=== PATIENT | male | born 1980 | race American Indian/Alaskan Native ===

== ENCOUNTER 2018-12-23 13:01 | Emergency (ER) | payer SELFPAY ==
--- NOTE | 2018-12-23 13:07 | Emergency Department Report ---
Blank Doc - Documentation Documentation: This is a 38-year-old male that presents with left eye pain and blurry vision. This initial assessment/diagnostic orders/clinical plan/treatment(s) is/are subject to change based on patient's health status, clinical progression and re- assessment by fellow clinical providers in the ED. Further treatment and workup at subsequent clinical providers discretion. Patient/guardians urged not to elope from the ED as their condition may be serious if not clinically assessed and managed. Initial orders include: 1- Patient sent to [facility] for further evaluation and treatment 2- conde lamp/visual test
[2018-12-23 13:09] VITALS: BP 126/84
[2018-12-23] MEDS ORDERED: FUL-GLO OP ONE (14:52)
[2018-12-23] MEDS ORDERED: TETRACAINE 0.5% OS ONE (14:52)
[2018-12-23] MEDS ORDERED: BSS OU ONE (14:52)
[2018-12-23] MEDS ORDERED: NORCO 7.5/325 PO ONE (14:52)
[2018-12-23] MEDS ORDERED: IBUPROFEN PO ONE (14:54)
--- NOTE | 2018-12-23 15:23 | Emergency Department Report ---
ED Eye Problem HPI - General Chief complaint: Eye Problems Stated complaint: (L) EYE SWOLLEN/PAIN Time Seen by Provider: 12/23/18 13:06 Source: patient Mode of arrival: Ambulatory Limitations: No Limitations - History of Present Illness Initial comments: This is a 38-year-old male that presents with left eye pain and blurry vision. Patient admits to photophobia pain denies any injury has been going on for one week. Patient is HIV positive. MD chief complaint: eye pain, eye redness, vision change Onset/Timin -: week(s) Onset Description: sudden Location: left eye Eye Symptoms: redness, pain, foreign body sensation, blurry vision, photophobia Severity: severe Severity scale (0 -10): 10 If Pain, Quality: sharp, aching, throbbing, stabbing Consistency: constant Associated Symptoms: none Treatments Prior to Arrival: none, eyepatch - Related Data Patient Tetanus UTD: Yes Previous Rx's Medication Instructions Recorded Last Taken Type Erythromycin [Erythromycin Ophth 1 applic OS QID #1 tube 12/23/18 Unknown Rx Oint] HYDROcodone/APAP 7.5-325 [Leland 1 each PO Q6HR PRN #12 tablet 12/23/18 Unknown Rx 7.5-325 mg TAB] Ibuprofen [Motrin 600 MG tab] 600 mg PO Q8H PRN #30 tablet 12/23/18 Unknown Rx Allergies Allergy/AdvReac Type Severity Reaction Status Date / Time No Known Allergies Allergy Unverified 12/23/18 13:05 ED Review of Systems ROS: Stated complaint: (L) EYE SWOLLEN/PAIN Other details as noted in HPI Comment: All other systems reviewed and negative ED Past Medical Hx - Past Medical History Previous Medical History?: Yes Hx HIV: Yes - Surgical History Past Surgical History?: No - Social History Smoking Status: Current Every Day Smoker Substance Use Type: Alcohol - Medications Home Medications: Home Medications Medication Instructions Recorded Confirmed Last Taken Type Erythromycin [Erythromycin Ophth 1 applic OS QID #1 tube 12/23/18 Unknown Rx Oint] HYDROcodone/APAP 7.5-325 [[place] 1 each PO Q6HR PRN #12 tablet 12/23/18 Unknown Rx 7.5-325 mg TAB] Ibuprofen [Motrin 600 MG tab] 600 mg PO Q8H PRN #30 tablet 07/28/19 Unknown Rx ED Physical Exam - General Limitations: No Limitations General appearance: alert, in no apparent distress - Head Head exam: Present: atraumatic, normocephalic - Eye Eye exam: Present: PERRL, EOMI, conjunctival injection Pupils: Present: other (cornea has linear abrasion from 9:00 o'clock fluroscien uptake. ) - Expanded Eye Exam Expanded Eyelids: Normal Inspection: Left Pupils: Regular, Round: Left Sclera/Conjunctival: Injection: Left Posterior chamber: Deferred: Left - ENT ENT exam: Present: mucous membranes moist - Neurological Exam Neurological exam: Present: alert, oriented X3 - Psychiatric Psychiatric exam: Present: normal affect, normal mood - Skin Skin exam: Present: warm, dry, intact, normal color. Absent: rash ED Course Vital Signs 12/23/18 13:08 Temperature 98 F Pulse Rate 90 Respiratory 18 Rate Blood Pressure 126/84 O2 Sat by Pulse 100 Oximetry ED Medical Decision Making - Medical Decision Making This is a 38-year-old male that presents with left eye pain and blurry vision. Patient admits to photophobia pain denies any injury has been going on for one week. Patient is HIV positive. Patient will be treated with vancomycin ophthalmic ointment apply 4 times a day for the next 5 days. Patient is instructed to follow up with ophthalmology. Patient be given a prescription for Leland and ibuprofen for pain management. Critical care attestation.: If time is entered above; I have spent that time in minutes in the direct care of this critically ill patient, excluding procedure time. ED Disposition Clinical Impression: Corneal laceration of left eye Qualifiers: Encounter type: initial encounter Qualified Code(s): S05.32XA - Ocular laceration without prolapse or loss of intraocular tissue, left eye, initial encounter Disposition: DC-01 TO HOME OR SELFCARE Is pt being admited?: No Does the pt Need Aspirin: No Condition: Stable Instructions: Corneal Abrasion (ED) Additional Instructions: Please use antibiotic ointment as prescribed. Pain medication as needed. It is very very important for you to follow up with ophthalmology within 24 hours to prevent further damage or loss of vision. Prescriptions: Erythromycin [Erythromycin Ophth Oint] 1 applic OS QID #1 tube Ibuprofen [Motrin 600 MG tab] 600 mg PO Q8H PRN #30 tablet PRN Reason: Pain , Severe (7-10) HYDROcodone/APAP 7.5-325 [Leland 7.5-325 mg TAB] 1 each PO Q6HR PRN #12 tablet PRN Reason: Pain , Severe (7-10) Referrals: MAVIS MARTINO MD [Staff Physician] - 3-5 Days [facility] [Provider Group] - 3-5 Days [facility] [Provider Group] - 3-5 Days Forms: Work/School Release Form(ED)
== END 2018-12-23 16:54 | disposition home or self-care (01) ==
LOC: ED 13:01
DX: S05.32XA Ocular laceration without prolapse or loss of intraocular tissue, left eye, initial encounter (principal); F17.200 Nicotine dependence, unspecified, uncomplicated; X58.XXXA Exposure to other specified factors, initial encounter; Y93.89 Activity, other specified; Y92.89 Other specified places as the place of occurrence of the external cause; Y99.8 Other external cause status

== ENCOUNTER 2019-05-23 04:19 | Emergency (ER) | payer SELFPAY ==
--- NOTE | 2019-05-23 08:29 | Emergency Department Report ---
ED General Adult HPI - General Chief complaint: Pain General Stated complaint: GENERALIZED PAIN MOUTH, BODY Time Seen by Provider: 05/23/19 08:26 Source: patient, EMS Mode of arrival: Ambulatory Limitations: No Limitations - History of Present Illness Initial comments: 39yo BM states that he has L ear and neck pain that is an 8 of 10 x 3 days. Pt then further states that he has a history of periodontitis. Location: head Radiation: neck Severity scale (0 -10): 8 Quality: aching Consistency: constant Improves with: none Worsens with: movement Associated Symptoms: malaise Treatments Prior to Arrival: none - Related Data Previous Rx's Medication Instructions Recorded Last Taken Type Erythromycin [Erythromycin Ophth 1 applic OS QID #1 tube 12/23/18 Unknown Rx Oint] HYDROcodone/APAP 7.5-325 [[place] 1 each PO Q6HR PRN #12 tablet 12/23/18 Unknown Rx 7.5-325 mg TAB] Ibuprofen [Motrin 600 MG tab] 600 mg PO Q8H PRN #30 tablet 12/23/18 Unknown Rx Amoxicillin/K Clav Tab [Augmentin 1 tab PO Q12HR 10 Days #20 tab 05/23/19 Unknown Rx 875 mg] Ibuprofen [Motrin 600 MG tab] 600 mg PO Q8H PRN 7 Days #21 tablet 05/23/19 Unknown Rx Allergies Allergy/AdvReac Type Severity Reaction Status Date / Time No Known Allergies Allergy Unverified 12/23/18 13:05 ED Review of Systems ROS: Stated complaint: GENERALIZED PAIN MOUTH, BODY Other details as noted in HPI Comment: All other systems reviewed and negative Constitutional: see HPI ENT: as per HPI ED Past Medical Hx - Past Medical History Previous Medical History?: Yes Hx Pulmonary Embolism: Yes Hx HIV: Yes - Surgical History Past Surgical History?: Yes Additional Surgical History: colorectal - Social History Smoking Status: Current Every Day Smoker Substance Use Type: Marijuana - Medications Home Medications: Home Medications Medication Instructions Recorded Confirmed Last Taken Type Erythromycin [Erythromycin Ophth 1 applic OS QID #1 tube 12/23/18 Unknown Rx Oint] HYDROcodone/APAP 7.5-325 [[place] 1 each PO Q6HR PRN #12 tablet 12/23/18 Unknown Rx 7.5-325 mg TAB] Ibuprofen [Motrin 600 MG tab] 600 mg PO Q8H PRN #30 tablet 12/23/18 Unknown Rx Amoxicillin/K Clav Tab [Augmentin 1 tab PO Q12HR 10 Days #20 tab 05/23/19 Unknown Rx 875 mg] Ibuprofen [Motrin 600 MG tab] 600 mg PO Q8H PRN 7 Days #21 tablet 05/23/19 Unknown Rx ED Physical Exam - General Limitations: No Limitations General appearance: alert, in no apparent distress - Head Head exam: Present: atraumatic, normocephalic, normal inspection - Eye Eye exam: Present: normal appearance, PERRL, EOMI Pupils: Present: normal accommodation - Expanded ENT Exam Expanded Ear exam: Present: other (Tenderness of the L external ear and L submandibular lymph node) Mouth exam: Present: tongue normal. Absent: drooling, laceration Teeth exam: Present: gingival enlargement, other (poor dental hygeine, malodorous breath) Throat exam: Positive: normal inspection. Negative: tonsillar erythema, tonsillar exudate - Neck Neck exam: Present: tenderness, full ROM, lymphadenopathy - Respiratory Respiratory exam: Present: normal lung sounds bilaterally. Absent: respiratory distress, wheezes - Cardiovascular Cardiovascular Exam: Present: regular rate, normal rhythm, normal heart sounds - GI/Abdominal GI/Abdominal exam: Present: soft. Absent: distended, tenderness - Rectal Rectal exam: Present: deferred - Extremities Exam Extremities exam: Present: normal inspection, full ROM, tenderness - Back Exam Back exam: Present: normal inspection, full ROM. Absent: tenderness - Neurological Exam Neurological exam: Present: alert, altered, oriented X3 - Psychiatric Psychiatric exam: Present: normal affect, normal mood. Absent: depressed - Skin Skin exam: Present: warm, dry, intact ED Course Vital Signs 05/23/19 05/23/19 04:25 09:19 Temperature 98.9 F 98.9 F Pulse Rate 106 H 99 H Respiratory 20 20 Rate Blood Pressure 149/105 Blood Pressure 142/99 [Right] O2 Sat by Pulse 99 100 Oximetry ED Medical Decision Making - Lab Data Result diagrams: 05/23/19 10:39 05/23/19 10:39 - Radiology Data Print Report Referring Physician: KENDAL REED Patient Name: DIANE BROWN Date of : 1980 Sex: Male Report Date: 2019-05-23 Report Status: Finalized Findings [facility] [address] [place] [address] Cat Scan Report Signed Patient: DIANE BROWN MR#: [id number] : 1980 Acct:[id number] Age/Sex: 39 / M ADM Date: 05/23/19 Loc: ED Attending Dr: Ordering Physician: KENDAL REED PA-C Date of Service: 05/23/19 Procedure(s): CT neck w con Accession Number(s): [id number] cc: KENDAL REED PA-C CT soft tissue neck with contrast. CLINICAL HISTORY: Left neck pain for 3 days. FINDINGS: No previous exams are available for comparison. There is relative prominence of the left palatine soft tissues which may reflect a lymphoid hypertrophy at. The findings. Extended superiorly and inferiorly with relative effacement of the left eustachian tube as well as the left pyriform sinus. The beam hardening from the patient's dental amalgam degrades image quality. However, there is no clear CT evidence of well-defined fluid collection on this exam to indicate abscess. There is no significant narrowing of the airway at. There are numerous scattered cervical lymph nodes, including within the submandibular and submental regions as well as along the jugular chains at. The findings are more prominent on the left with a node within the left jugulodigastric region measuring approximately 1 cm in greatest short axis diameter. These nodes are nonspecific though may be reactive and correlation would be needed regarding infectious or inflammatory process. There is no clear CT evidence of associated necrosis on the current study. The visualized parotid and submitted ventricular glands appear to demonstrate symmetric attenuation without calcification. The thyroid gland appears appropriate in size and configuration. The vascular structures grossly demonstrate appropriate contrast opacification. The epiglottis is normal in size. There is minimal opacification along the posterior right maxillary sinus. There is asymmetry of the left thyroid cartilage which appears to be developmental. All CT scans at this location are performed using the CT dose reduction for ALARA by means of automated exposure control. IMPRESSION: There is relative prominence of the left palatine soft tissues along with cervical adenopathy as detailed above; correlation be needed regarding infectious or inflammatory process. There is no CT evidence of well-defined fluid collection on the current study to indicate abscess. Signer Name: Theodore Mancilla MD Signed: 05/23/2019 2:53 PM Workstation Name: [id number] Transcribed By: MR Dictated By: Theodore Mancilla MD Electronically Authenticated By: Theodore Mancilla MD Signed Date/Time: 05/23/191452 DD/ 39 TD/TT: - Medical Decision Making 39yo BM states that he has L ear and neck pain that is an 8 of 10 x 3 days. Pt then further states that he has a history of periodontitis. A ct scan was taken due to the L side ear, neck and face. CT scan showed mild adenopathy but no abscess or fluid collection. Pt will be started on Augmentin and Ibuprofen. He was instructed to take the medications as prescribed, f/u with dentist and see ER as needed. Critical care attestation.: If time is entered above; I have spent that time in minutes in the direct care of this critically ill patient, excluding procedure time. ED Disposition Clinical Impression: Gingiva disorder, Chronic periodontal disease Disposition: TO HOME OR SELFCARE Is pt being admited?: No Does the pt Need Aspirin: No Condition: Stable Instructions: Gingivitis (ED) Additional Instructions: Pt will be started on Augmentin and Ibuprofen. He was instructed to take the medications as prescribed, f/u with dentist and see ER as needed. Prescriptions: Amoxicillin/K Clav Tab [Augmentin 875 mg] 1 tab PO Q12HR 10 Days #20 tab Ibuprofen [Motrin 600 MG tab] 600 mg PO Q8H PRN 7 Days #21 tablet PRN Reason: Pain Referrals: PRIMARY CAREMD [Primary Care Provider] - 3-5 Days Time of Disposition: 15:47
[2019-05-23 09:21] VITALS: BP 142/99
[2019-05-23 11:07] LABS: Hematocrit 39.2 % (35.5-45.6); Hemoglobin 12.9 gm/dl (11.8-15.2); Mean Corpuscular HGB Conc 33 % (32-34); Mean Corpuscular Volume 84 fl (84-94); Platelet Count 270 K/mm3 (140-440); Red Blood Count 4.66 M/mm3 (3.65-5.03); Red Cell Distribution Width 16.9 % (13.2-15.2)
[2019-05-23 11:23] LABS: Alanine Aminotransferase 11 units/L (7-56); Albumin 3.7 g/dL (3.9-5); BUN/Creatinine Ratio 10; Blood Urea Nitrogen 10 mg/dL (9-20); Calcium 8.9 mg/dL (8.4-10.2); Hemolysis Index 25
[2019-05-23] MEDS ORDERED: IBUPROFEN 600 MG TAB PO ONE (12:26)
[2019-05-23 13:04] LABS: Band Neutrophils # (Manual) 0.1 K/mm3; Basophils % (Manual) 0 % (0.0-1.8); Total Cells Counted 100
[2019-05-23 13:05] LABS: Anisocytosis 1+
[2019-05-23 13:06] LABS: Platelet Estimate Consistent w Auto
--- NOTE | 2019-05-23 14:57 | Cat Scan Report ---
CT soft tissue neck with contrast. CLINICAL HISTORY: Left neck pain for 3 days. FINDINGS: No previous exams are available for comparison. There is relative prominence of the left pa latine soft tissues which may reflect a lymphoid hypertrophy at. The findings. Extended superiorly an d inferiorly with relative effacement of the left eustachian tube as well as the left pyriform sinus. The beam hardening from the patient's dental amalgam degrades image quality. However, there is no cl ear CT evidence of well-defined fluid collection on this exam to indicate abscess. There is no signif icant narrowing of the airway at. There are numerous scattered cervical lymph nodes, including within the submandibular and submental r egions as well as along the jugular chains at. The findings are more prominent on the left with a nod e within the left jugulodigastric region measuring approximately 1 cm in greatest short axis diameter . These nodes are nonspecific though may be reactive and correlation would be needed regarding infect ious or inflammatory process. There is no clear CT evidence of associated necrosis on the current alejandro dy. The visualized parotid and submitted ventricular glands appear to demonstrate symmetric attenuation w ithout calcification. The thyroid gland appears appropriate in size and configuration. The vascular s tructures grossly demonstrate appropriate contrast opacification. The epiglottis is normal in size. T here is minimal opacification along the posterior right maxillary sinus. There is asymmetry of the le ft thyroid cartilage which appears to be developmental. All CT scans at this location are performed u sing the CT dose reduction for ALARA by means of automated exposure control. IMPRESSION: There is relative prominence of the left palatine soft tissues along with cervical adenopathy as deta iled above; correlation be needed regarding infectious or inflammatory process. There is no CT eviden ce of well-defined fluid collection on the current study to indicate abscess. Signer Name: Theodore Mancilla MD Signed: 05/23/2019 2:53 PM Workstation Name: [id number]
== END 2019-05-23 16:03 | disposition home or self-care (01) ==
LOC: ED 04:19
DX: K05.6 Periodontal disease, unspecified (principal); K06.9 Disorder of gingiva and edentulous alveolar ridge, unspecified; F17.200 Nicotine dependence, unspecified, uncomplicated; F12.10 Cannabis abuse, uncomplicated; Z86.711 Personal history of pulmonary embolism; Z79.899 Other long term (current) drug therapy; Z98.890 Other specified postprocedural states
CPT/HCPCS: 36415; 70491; 80053; 85007; 85025; 99284; Q9967